=== PATIENT | male | born 1985 | race Two or more races ===

== ENCOUNTER 2024-11-09 23:28 | Emergency (ER) | payer SELFPAY ==
[~2024-11-09] VITALS: Ht 162.6 cm; Wt 57.4 kg
[2024-11-10 00:30] LABS: Basophils # (auto) 0 10 ^3/uL (0-0.2); Basophils % (auto) 0.4 % (0.0-2.0); Eosinophils # (auto) 0.3 10 ^3/uL (0-0.8); Eosinophils % (auto) 4.1 % (0.0-7.0); Hematocrit 36.9 % (41.0-53.0); Hemoglobin 12.1 g/dL (13.5-17.5); Lymphocytes # (auto) 1.6 10 ^3/uL (0.4-5.4); Lymphocytes % (auto) 22.6 % (10.0-50.0); Mean Corpuscular Hemoglobin 30.8 pg (28.0-32.0); Mean Corpuscular Hgb Conc. 32.8 g/dL (32.0-36.0); Mean Corpuscular Volume 93.7 fL (80.0-100.0); Monocytes % (auto) 13.7 % (0.0-12.0); Neutrophils # (auto) 4.3 10 ^3/uL (1.6-8.6); Neutrophils % (auto) 59.2 % (37.0-80.0); Platelet Count (auto) 390 10^3/uL (140-450); Red Blood Cells 3.94 10^6/uL (4.5-5.90); Red Cell Distribution Width 14.2 % (11.8-14.3); White Blood Cell 7.2 10^3/uL (4.4-10.8)
[2024-11-10 00:45] LABS: Chloride 106 mmol/L (98-107); Potassium 3.9 mmol/L (3.5-5.1); Sodium 141 mmol/L (136-145)
[2024-11-10 00:46] LABS: Anion Gap 6 (5-15); Carbon Dioxide 29 mmol/L (20-31)
[2024-11-10 00:47] LABS: Calcium 9.2 mg/dL (8.7-10.4)
[2024-11-10 00:51] LABS: Glucose 102 mg/dL (74-106)
[2024-11-10 01:15] LABS: BUN/Creatinine Ratio 13.7 (10.0-20.0); Blood Urea Nitrogen 14 mg/dL (9-23)
[2024-11-10 02:12] VITALS: BP 120/74; PULSE 82; RESP 18; TEMP 98; O2SAT 98
[2024-11-10 02:14] LABS: INR 0.93 (0.9-1.15); Partial Thromboplastin Time 29.6 SEC (24.5-34.5); Prothrombin Time 9.9 sec (9.3-11.8)
--- NOTE | 2024-11-10 02:32 | ED.PDOC ---
Musculoskeletal HPI Comments 39 year old male presents to ER with complaints of medical clearance. Patient initially presented to ER with complaints of medical clearance to get into a sober living facility but then upon arrival to [facility] stated the only reason he checked into ER was for complaints of "right hand pain x1 week", denying needing medical clearance. 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 He reports 4/10 pain to right hand and denies any known injury/trauma to cause his right hand pain x 1 week. Patient presents to ER alert and oriented x4, with steady gait, in no distress. Denies fever, body aches, chills, skin drainage or any further sympt oms/complaints Chief Complaint: Medical Clearance Time Seen by MD: 23:57 Primary Care Provider: UNKNOWN Reviewed Notes: Nurses Notes, Medications, Allergies Allergies: Coded Allergies: NO KNOWN ALLERGIES (Unverified , 11/09/24) Home Meds Active Scripts Acetaminophen (Acetaminophen) 500 Mg Tab, 500 MG PO Q4HPRN, #30 TAB 0 Refills Prov:ANNA DOWD 11/10/24 Cephalexin Monohydrate (Cephalexin) 500 Mg Cap, 1 CAP PO BID for 7 Days, #14 CAP 0 Refills Prov:ANNA DOWD 11/10/24 Information Source: Patient Mode of Arrival: Ambulatory Past Medical History PAST MEDICAL HISTORY: Denies Surgical History (Other): Amputation right 3rd, 4th and 5th fingers Family History Family History: Unknown Social History Alcohol: Occasionally Lives In: Home Constitutional: denies: chills, diaphoresis, fatigue, fever, malaise, sweats, weakness, others EENTM: denies: blurred vision, double vision, ear bleeding, ear discharge, ear drainage, ear pain, ear ringing, eye pain, eye redness, hearing loss, mouth pain, mouth swelling, nasal discharge, nose bleeding, nose congestion, nose pain, photophobia, tearing, throat pain, throat swelling, voice changes, others Respiratory: denies: cough, hemoptysis, orthopnea, SOB at rest, shortness of breath, SOB with excertion, stridor, wheezing, others Cardiovascular: denies: chest pain, dizzy spells, diaphoresis, Dyspnea on exertion, edema, irregular heart beat, left arm pain, lightheadedness, palpitations, PND, syncope, others Gastrointestinal: denies: abdomen distended, abdominal pain, blood streaked bowels, constipated, diarrhea, dysphagia, difficulty swallowing, hematemesis, melena, nausea, poor appetite, poor fluid intake, rectal bleeding, rectal pain, vomiting, others Genitourinary: denies: burning, dysuria, flank pain, frequency, hematuria, incontinence, penile discharge, penile sore, pain, testicle pain, testicle swelling, urgency, others Neurological: denies: dizziness, fainting, headache, left sided numbness, left sided weakness, numbness, paresthesia, pre-existing deficit, right sided numbne ss, right sided weakness, seizure, speech problems, tingling, tremors, weakness, others Musculoskeletal: reports: others (As stated in HPI) Integumetry: reports: others (As stated in HPI) Allergic/Immunocompromised: denies: Difficulty Healing, Frequent Infections, Hives, Itching, others Hematologic/Lymphatic: denies: anemia, blood clots, easy bleeding, easy bruising, swollen glands, others Endocrine: denies: excessive hunger, excessive sweating, excessive thirst, excessive urination, flushing, intolerance to cold, intolerance to heat, unexplained weight gain, unexplained weight loss, others Psychiatric: denies: anxiety, bipolar disorder, depression, hopeless, panic disorder, schizophrenia, sleepless, suicidal, others Physical Exam General Appearance: No Apparent Distress HEENT: PERRL/EOMI Neck: Full Range of Motion, Non-Tender, Normal Respiratory: Chest Non-Tender, Lungs Clear, No Accessory Muscle Use, No Respiratory Distress, Normal Breath Sounds Cardiovascular: No Murmur, No Gallop, Regular Rate/Rhythm Breast Exam: Deferred Gastrointestinal: NOT DONE Genitalia: Deferred Pelvic: Deferred Rectal: Deferred Extremities: Normal capillary refill, Normal range of motion Musculoskeletal : Extremity Location: Hand ( Amputations of right 3rd, 4th and 5th fingers noted with associated scabbing/minimal erythema/TTP and stitches inplace to right 3rd, 4th and 5th metacarpal heads. No drainage/fluctuance/red streaking/open wounds noted. Pulses intact) Neurologic: Alert, business manager II-XII nml as Tested, No Motor Deficits, Normal Affect, Normal Mood, No Sensory Deficits Cerebellar Function: Normal Reflexes: Normal Skin: Dry, Warm Peripheral Pulses: 2+ Radial (R), 2+ Radial (L), 2+ Brachial (R), 2+ Brachial (L) Lymphatic: No Adenopathy Was a procedure done? Was a procedure done?: No Sedation Sedation?: No Differential Diagnosis EXT Differential Diagnosis: Dislocation, Laceration, Septic, Neurovascular injury X-Ray, Labs, Meds, VS Vital Signs Date Time Temp Pulse Resp B/P (MAP) Pulse Ox O2 Delivery O2 Flow Rate FiO2 11/10/24 02:12 98.0 82 18 120/74 (89) 86 98.0 11/10/24 02:12 82 18 98 Room Air* 0 21 11/09/24 23:28 98.9 89 18 124/76 (92) 97 Lab Test 11/10/24 02:30 11/10/24 00:22 11/10/24 00:10 Range/Units Urine Color Light-yellow Yellow Urine Clarity Clear Clear Urine pH 7.0 5.0-9.0 Urine Specific [place] 1.019 1.001-1.035 Urine Protein Negative Negative Urine Ketones Negative Negative Urine Blood Negative Negative /uL Urine Nitrite Negative Negative Urine Bilirubin Negative Negative Urine Urobilinogen Normal Negative mg/dL Urine Leukocyte Esterase Negative Negative /uL Urine RBC None seen 0 - 3 /hpf Urine Microscopic WBC < 1 0-3 /HPF Urine Squamous Epithelial Cells None seen <5 /hpf Urine Bacteria None seen None Seen /hpf Urine Glucose Normal Normal mg/dL Urine Opiates Screen Neg NEGATIVE Urine Fentanyl Screen Neg NEGATIVE Urine Barbiturates Screen Neg NEGATIVE Urine Phencyclidine Screen Neg NEGATIVE Urine Amphetamines Screen Pos NEGATIVE Urine Benzodiazepines Screen Neg NEGATIVE Urine Cocaine Screen Neg NEGATIVE Urine Cannabinoids Screen Pos NEGATIVE Prothrombin Time 9.9 9.3-11.8 sec Prothrombin Time INR 0.93 0.9-1.15 Activated Partial Thromboplast Time 29.6 24.5-34.5 SEC Lipase 53 12-53 U/L White Blood Count 7.2 4.4-10.8 10^3/uL Red Blood Count 3.94 L 4.5-5.90 10^6/uL Hemoglobin 12.1 L 13.5-17.5 g/dL Hematocrit 36.9 L 41.0-53.0 % Mean Corpuscular Volume 93.7 80.0-100.0 fL Mean Corpuscular Hemoglobin 30.8 28.0-32.0 pg Mean Corpuscular Hemoglobin Concent 32.8 32.0-36.0 g/dL Red Cell Distribution Width 14.2 11.8-14.3 % Platelet Count 390 140-450 10^3/uL Mean Platelet Volume 6.7 L 6.9-10.8 fL Neutrophils (%) (Auto) 59.2 37.0-80.0 % Lymphocytes (%) (Auto) 22.6 10.0-50.0 % Monocytes (%) (Auto) 13.7 H 0.0-12.0 % Eosinophils (%) (Auto) 4.1 0.0-7.0 % Basophils (%) (Auto) 0.4 0.0-2.0 % Neutrophils # (Auto) 4.3 1.6-8.6 10 ^3/uL Lymphocytes # (Auto) 1.6 0.4-5.4 10 ^3/uL Monocytes # (Auto) 1.0 0-1.3 10 ^3/uL Eosinophils # (Auto) 0.3 0-0.8 10 ^3/uL Basophils # (Auto) 0 0-0.2 10 ^3/uL Nucleated Red Blood Cells 0.0 % Sodium Level 141 136-145 mmol/L Potassium Level 3.9 3.5-5.1 mmol/L Chloride Level 106 98-107 mmol/L Carbon Dioxide Level 29 20-31 mmol/L Anion Gap 6 5-15 Blood Urea Nitrogen 14 9-23 mg/dL Creatinine 1.02 0.700-1.30 mg/dL Glomerular Filtration Rate Calc 96 >90 mL/min BUN/Creatinine Ratio 13.7 10.0-20.0 Serum Glucose 102 74-106 mg/dL Calcium Level 9.2 8.7-10.4 mg/dL Plasma/Serum Blood Alcohol 4.0 <10 mg/dL PATIENT: CYNTHIA MEDELLINCCT: [id number]: [id number] : 1985 LOC: ER ROOM / BED: / AGE / SEX: 39 / M ADM STATUS: REG ER SERVICE [id number] ORDERING PHYSICIAN: ANNA DOWD PROCEDURE(s): RHAN - R HAND 3 VIEW XRAY REASON: RIGHT HAND PAIN ORDER NUMBER(s): [id number], ACCESSION NUMBER(s): [id number] Examination: OLIVE Clinical Indication: RIGHT HAND PAIN Comparison: None. Technique: Two views of the right hand were evaluated. Findings: There is no evidence of acute fracture or dislocation. The phalanges of the right 3rd, 4th and 5th fingers with their associated soft tissues are not visualized, likely post-amputation status. Advised clinical correlation. The carpal bones are well aligned. The joint spaces are well-preserved. Impression: 1. No acute fracture or dislocation by plain radiography. 2. Phalanges of the right 3rd, 4th and 5th fingers with their associated soft tissues are not visualized, likely post-amputation status. Advised clinical correlation. Electronically Signed 11/10/2024 03:43 Lars Gonsalves ATED BY: ARMINDA MANSFIELD MD DICTATED DATE/TIME: 11/10/24342 SIGNED BY: ARMINDA MANSFIELD MD SIGNED DATE/TIME: 11/10/24342 CC: CBC reviewed without any significant abnormalities BMP reviewed-unremarkable PT/PTT reviewed- normal Right hand x-ray reviewed Rocephin 1 g IM ordered UDS reviewed-positive methamphetamine, positive cannabinoids Urinalysis reviewed without any significant abnormalities Attempted to remove stitches from right hand, patient refused Methamphetamine/cannabis cessation discussed and advised Advised to follow up with PCP and orthopedic hand specialist in 1-2 days Patient verbalized understanding and agreeable with current plan of care Advised to return to ER immediately if symptoms worsen Images Reviewed?: Images reviewed and evaluated by me Time of 1ST Reevaluation: 02:52 Reevaluation 1ST: N/A Patient Education/Counseling: Diagnosis, Treatment, Prognosis, Need For Follow Up Family Education/Counseling: No Family Present Departure 1 Departure Time of Disposition: 03:52 Impression: Primary Impression: Cellulitis of right hand Additional Impression: Polysubstance abuse Disposition: HOME / SELF CARE / HOMELESS Condition: Stable e-Prescriptions Clindamycin Hcl (Clindamycin Hcl) 300 Mg Cap 1 CAP PO TID for 7 Days, #21 CAP 0 Refills Prov: ANNA DOWD 11/10/24 Acetaminophen (Acetaminophen) 500 Mg Tab 500 MG PO Q4HPRN, #30 TAB 0 Refills Prov: ANNA DOWD 1/23/25 Discharged With: Self Critical Care Note Critical Care Time?: No Stability Stability form required: No Heart Score Heart Score: Heart Score Response (Comments) Value History N/A 0 EKG N/A 0 Age N/A 0 Risk Factors N/A 0 Troponin N/A 0 Total 0 ANNA DOWD Nov 10, 2024 02:32
[2024-11-10 03:00] LABS: Urine Bacteria None Seen /hpf (None Seen)
[2024-11-10 03:12] LABS: Urine Blood Negative /uL (Negative); Urine Clarity Clear (Clear); Urine Color Light-Yellow (Yellow); Urine Protein, UAD Negative (Negative); Urine Specific Gravity 1.019 (1.001-1.035); Urine Squamous Epithelial Cell None Seen /hpf (<5); Urine Urobilinogen Normal (Negative)
[2024-11-10 03:19] LABS: Cannabinoid Screen, Urine Pos (NEGATIVE)
[2024-11-10 03:40] LABS: Amphetamine Screen, Urine Pos (NEGATIVE); Barbiturate Scree,Urine Neg (NEGATIVE); Benzodiazephine Screen, Urine Neg (NEGATIVE); Cocaine Screen, Urine Neg (NEGATIVE); Opiate Scree,Urine Neg (NEGATIVE); Phencyclidine Screen, Urine Neg (NEGATIVE)
[2024-11-10 03:43] LABS: Urine WBC < 1 /HPF (0-3)
--- NOTE | 2024-11-10 03:44 | DVH ---
Examination: RHAN Clinical Indication: RIGHT HAND PAIN Comparison: None. Technique: Two views of the right hand were evaluated. Findings: There is no evidence of acute fracture or dislocation. The phalanges of the right 3rd, 4th and 5th fingers with their associated soft tissues are not visual ized, likely post-amputation status. Advised clinical correlation. The carpal bones are well aligned. The joint spaces are well-preserved. Impression: 1. No acute fracture or dislocation by plain radiography. 2. Phalanges of the right 3rd, 4th and 5th fingers with their associated soft tissues are not visual ized, likely post-amputation status. Advised clinical correlation. Electronically Signed 11/10/2024 03:43 Lars Gonsalves
[2024-11-10] MEDS ORDERED: CEPH500C PO (04:12)
[2024-11-10] MEDS ORDERED: ACET500T58 PO (04:12)
[2024-11-10] MEDS ORDERED: CLIN1CAP70 PO (04:25)
== END 2024-11-10 04:18 | disposition home or self-care (01) ==
LOC: ER 23:28
DX: L03.113 Cellulitis of right upper limb (principal); F19.10 Other psychoactive substance abuse, uncomplicated; Z79.899 Other long term (current) drug therapy; Z98.890 Other specified postprocedural states
CPT/HCPCS: 36415; 73130; 80048; 80307; 80320; 81001; 83690; 85025; 85610; 85730